=== PATIENT | female | born 1940 | race Two or more races ===

== ENCOUNTER → 2018-01-18 | Outpatient (CLI) | payer OTHER | END | disposition home or self-care (01) | LOC: HKI 14:50 | DX: M25.561 Pain in right knee (principal); M17.11 Unilateral primary osteoarthritis, right knee | CPT/HCPCS: 73564; 73564-RT ==

== ENCOUNTER 2018-05-11 07:05 | Inpatient (IN) | payer OTHER ==
[~2018-05-11 07:05] MED LIST: DESFLURANE 15 MIN
[2018-05-11] MEDS: LACTATED RINGER'S 1,000 ML IV* (08:30)
[2018-05-11] MEDS ORDERED: GLYCOPYRROLATE 0.4 MG INJ (08:47)
[2018-05-11] MEDS ORDERED: ROCURONIUM 50 MG INJ (08:47)
[2018-05-11] MEDS ORDERED: ONDANSETRON 4 MG INJ (08:47)
[2018-05-11] MEDS ORDERED: FENTAnyl 50 MCG/ML VIAL (08:47)
[2018-05-11] MEDS ORDERED: CEFAZOLIN 1 GM INJ (08:47)
[2018-05-11] MEDS ORDERED: MIDAZOLAM 1 MG/ML 2 ML INJ (08:47)
[2018-05-11] MEDS ORDERED: PROPOFOL 20 ML (08:47)
[2018-05-11] MEDS ORDERED: NEOSTIGMINE 3 MG/3 ML SYRINGE (08:47)
[2018-05-11] MEDS ORDERED: ROPIVACAINE 0.5 % 30 ML VIAL (08:49)
[2018-05-11] MEDS ORDERED: DEXAMETHASONE 4 MG/ML 5 ML INJ (08:49)
[2018-05-11] MEDS: SOD CHLORIDE 0.9% 1,000 ML IV ×2 (09:55→20:58)
[2018-05-11] MEDS ORDERED: NACL 0.9% 3 ML SYG IV (10:00)
[2018-05-11] MEDS ORDERED: SENNA/DOCUSATE NA (8.6MG/50MG) TAB PO (10:00)
[2018-05-11] MEDS ORDERED: ROPIVACAINE 0.2% 60 ML, morphine SULFATE (PF) 4 MG, CLONIDINE 100 MCG, KETOROLAC 30 MG,... INJ (10:00)
[2018-05-11] MEDS ORDERED: NALOXONE (0.4 MG/ML) INJ IV ×2 (10:00→10:30)
[2018-05-11] MEDS ORDERED: DIPHENHYDRAMINE 50 MG INJ IV ×3 (10:00→10:30)
[2018-05-11] MEDS ORDERED: BISACODYL 10 MG SUPP PR (10:00)
[2018-05-11] MEDS ORDERED: BETHANECHOL 25 MG TAB PO (10:00)
[2018-05-11] MEDS ORDERED: NA PHOSPHATE/BIPHOS 133 ML ENEMA PR (10:00)
[2018-05-11] MEDS ORDERED: oxyCODONE 5 MG TAB PO ×3 (10:00)
[2018-05-11] MEDS ORDERED: MAGNESIUM HYDROXIDE 30ML CUP PO (10:00)
[2018-05-11] MEDS: POLYMYXIN B 500000 UNIT INJ (10:23)
[2018-05-11] MEDS: BACITRACIN 50000 UNITS INJ (10:23)
[2018-05-11] MEDS ORDERED: morphine SULFATE/PF (10 MG/10 ML) INJ (10:28)
[2018-05-11] MEDS: TRANEXAMIC ACID 1,000 MG in NS 100 ML INTRA-OP X1 IVPB (10:30)
[2018-05-11] MEDS ORDERED: FENTAnyl 50 MCG/ML VIAL IV ×3 (10:30)
[2018-05-11] MEDS ORDERED: LABETALOL HCL 20MG INJ IV (10:30)
[2018-05-11] MEDS ORDERED: MEPERIDINE 25 MG INJ IV (10:30)
[2018-05-11] MEDS ORDERED: HYDROmorphONE 0.5 MG/0.5 ML SYG IV ×2 (10:30)
[2018-05-11] MEDS ORDERED: ONDANSETRON 4 MG INJ IV (10:30)
[2018-05-11] MEDS ORDERED: hydrALAzine 20 MG INJ IV (10:30)
[2018-05-11] MEDS ORDERED: ZOLPIDEM 5 MG TAB PO (10:30)
[2018-05-11] MEDS ORDERED: OXYCODONE/ACETAMINOPHEN (5/325) TAB PO ×2 (10:30)
[2018-05-11] MEDS ORDERED: TRIMETHOBENZAMIDE 100 MG/ML VIAL IM ×2 (10:30)
[2018-05-11] MEDS ORDERED: ALBUTEROL 0.083% (NEB) 2.5 MG/3 ML AMP HHN (10:30)
[2018-05-11] MEDS ORDERED: HYDROmorphONE 1 MG/5 ML IV SYRINGE IV ×3 (10:30)
[2018-05-11] MEDS ORDERED: MIDAZOLAM 1 MG/ML 2 ML INJ IV (10:30)
[2018-05-11] MEDS ORDERED: EPHEDrine SULFATE 50 MG/5 ML SYG IV (10:30)
[2018-05-11] MEDS ORDERED: IPRATROPIUM (NEB) 0.5 MG/2.5 ML AMP HHN (10:30)
[2018-05-11] MEDS ORDERED: NALBUPHINE HCL (10 MG/1 ML) INJ IV (10:30)
[2018-05-11] MEDS: CEFAZOLIN 2 GM/50 ML (PMX) 50 ML IVPB ×2 (10:41→19:32)
[2018-05-11] MEDS ORDERED: SUGAMMADEX SODIUM 200 MG/2 ML VIAL IV (12:30)
[2018-05-11] MEDS: DOCUSATE SODIUM 100 MG CAP PO (15:25)
[2018-05-11] MEDS: ASPIRIN 81 MG TAB PO (15:25)
[2018-05-11] MEDS: GABAPENTIN 100 MG CAP PO ×2 (15:38→20:58)
[2018-05-11] MEDS: ONDANSETRON 4 MG INJ IV (19:36)
[2018-05-11] MEDS: TRANEXAMIC ACID 1,000 MG in NS 100 ML PRE-OP X1 IVPB (21:02)
[2018-05-12] MEDS: CEFAZOLIN 2 GM/50 ML (PMX) 50 ML IVPB ×2 (02:43→11:25)
[2018-05-12 04:48] LABS: ADD MAN DIFF? NO
[2018-05-12 04:50] LABS: BASOPHILS % 0.1 % (0.0-2.0); HEMATOCRIT 29.6 % (37.0-47.0); HEMOGLOBIN 9.5 g/dl (12.0-16.0); LYMPHOCYTES # 0.8 10^3/ul (0.8-2.9); MEAN CORPUSCULAR HEMOGLOBIN 29.7 pg (29.0-33.0); MEAN CORPUSCULAR HGB CONC 32.1 g/dl (32.0-37.0); MEAN CORPUSCULAR VOLUME 92.5 fl (82.0-101.0); MEAN PLATELET VOLUME 9.1 fl (7.4-10.4); MONOCYTE # 0.5 10^3/ul (0.3-0.9); MONOCYTES % 6.8 % (0.0-11.0); NEUTROPHIL # 6.5 10^3/ul (1.6-7.5); NEUTROPHILS % 82.8 % (39.0-77.0); PLATELET COUNT 252 10^3/UL (140-415); RED CELL DISTRIBUTION WIDTH 13.6 % (11.5-14.5)
[2018-05-12 04:50] LABS: WHITE BLOOD COUNT 7.8 10^3/ul (4.8-10.8)
[2018-05-12 05:13] LABS: ANION GAP 9 (5-13); BLOOD UREA NITROGEN 22 mg/dl (7-20); CALCIUM 8.8 mg/dl (8.4-10.2); CARBON DIOXIDE 24 mmol/L (21-31); CHLORIDE 103 mmol/L (97-110); GLUCOSE 140 mg/dl (70-220); POTASSIUM 4.3 mmol/L (3.5-5.1); SODIUM 136 mmol/L (135-144)
[2018-05-12] MEDS: DOCUSATE SODIUM 100 MG CAP PO (08:16)
[2018-05-12] MEDS: GABAPENTIN 100 MG CAP PO ×2 (08:16→13:43)
[2018-05-12] MEDS: ASPIRIN (EC) 81 MG TAB PO (08:16)
[2018-05-12] MEDS: CELECOXIB 100 MG CAP PO (08:16)
[2018-05-12] MEDS ORDERED: ONDANSETRON 4 MG INJ IV (10:00)
[2018-05-12] MEDS: SOD CHLORIDE 0.9% 1,000 ML IV (10:55)
[2018-05-12] MEDS: KETOROLAC 30 MG INJ IV (16:45)
[2018-05-13] MEDS ORDERED: PANTOPRAZOLE (EC) 40 MG TAB PO (06:00)
[2018-05-13] MEDS ORDERED: ENOXAPARIN 40 MG/0.4 ML SYG SC (09:00)
== END 2018-05-12 19:40 | DRG 470 ==
LOC: REC 07:05 → MS1 16:55
PROC: 0SRC069 Replacement of Right Knee Joint with Oxidized Zirconium on Polyethylene Synthetic Substitute, Cemented, Open Approach (ICD-10-PCS; principal; 2018-05-11 10:00)
DX: M17.11 Unilateral primary osteoarthritis, right knee (principal); J98.11 Atelectasis; D64.9 Anemia, unspecified; R62.7 Adult failure to thrive
CPT/HCPCS: 71045; 73560; 80048; 85025; 88304; 88311; 97116; 97161; 97167; 97530

== ENCOUNTER → 2018-05-27 | Outpatient (CLI) | payer OTHER | END | disposition home or self-care (01) | LOC: HKI 14:01 | DX: Z09 Encounter for follow-up examination after completed treatment for conditions other than malignant neoplasm (principal); Z96.651 Presence of right artificial knee joint | CPT/HCPCS: 73562; 73562-RT ==

== ENCOUNTER → 2018-06-03 | Outpatient (CLI) | payer OTHER | END | disposition home or self-care (01) | LOC: HKI 14:42 | DX: Z09 Encounter for follow-up examination after completed treatment for conditions other than malignant neoplasm (principal); Z96.651 Presence of right artificial knee joint ==

== ENCOUNTER → 2018-06-21 | Outpatient (CLI) | payer OTHER | END | disposition home or self-care (01) | LOC: HKI 12:56 | DX: Z09 Encounter for follow-up examination after completed treatment for conditions other than malignant neoplasm (principal); Z96.651 Presence of right artificial knee joint | CPT/HCPCS: 73562; 73562-RT ==

== ENCOUNTER → 2018-06-28 | Outpatient (CLI) | payer OTHER | END | disposition home or self-care (01) | LOC: HKI 14:09 | DX: Z47.1 Aftercare following joint replacement surgery (principal); Z96.651 Presence of right artificial knee joint ==

== ENCOUNTER → 2018-07-12 | Outpatient (CLI) | payer OTHER | END | disposition home or self-care (01) | LOC: HKI 14:17 | DX: Z96.651 Presence of right artificial knee joint (principal); Z47.1 Aftercare following joint replacement surgery ==